=== PATIENT | male | born 1990 | race African-American/Black ===

== ENCOUNTER 2018-07-24 05:34 | Emergency (ER) | payer SELFPAY ==
[~2018-07-24] VITALS: Ht 180.3 cm; Wt 124.7 kg
[2018-07-24 05:48] VITALS: BP 127/87
--- NOTE | 2018-07-24 05:50 | NUR ---
PT came to emergency room after punching his left arm through window x1 hr ago. Pt states pain 2/10. Pt put on the monitor, NAD noted. Respirations even and unlabored. No bleeding. Laceration to L forearm. Pt [id number]. Pending eval from .
[2018-07-24] MEDS ORDERED: LIDOCAINE HCL/PF 1% 30 ML SDV ONE (06:21)
[2018-07-24] MEDS ORDERED: TDAP [DIPH/PERTUSSIS/TET] 0.5 ML VIAL IM ONE ×2 (06:30→06:43)
[2018-07-24] MEDS ORDERED: LIDOCAINE 1%-EPI 1:100,000 20 ML VIAL TP ONE (06:30)
== END 2018-07-24 07:03 | disposition home or self-care (01) ==
LOC: ER 05:39
DX: S51.812A Laceration without foreign body of left forearm, initial encounter (principal); Z98.890 Other specified postprocedural states; W26.8XXA Contact with other sharp object(s), not elsewhere classified, initial encounter; Y93.89 Activity, other specified; Y92.89 Other specified places as the place of occurrence of the external cause; Y99.8 Other external cause status
CPT/HCPCS: 90715; A6402; J3490

== ENCOUNTER 2018-07-27 10:12 | Emergency (ER) | payer SELFPAY ==
[~2018-07-27] VITALS: Ht 180.3 cm; Wt 126.6 kg
[2018-07-27 10:26] VITALS: BP 142/102
--- NOTE | 2018-07-27 11:29 | NUR ---
for discharge- ACI given verbalizes understanding Home ambulatory stable
== END 2018-07-27 11:29 | disposition home or self-care (01) ==
LOC: ER 10:16
DX: S41.112D Laceration without foreign body of left upper arm, subsequent encounter (principal); Z96.622 Presence of left artificial elbow joint; X58.XXXD Exposure to other specified factors, subsequent encounter
CPT/HCPCS: 99281; A4606; Z7610; Z7502

== ENCOUNTER 2018-08-08 11:36 | Emergency (ER) | payer SELFPAY ==
[~2018-08-08] VITALS: Ht 182.9 cm; Wt 127.0 kg
[2018-08-08 11:36] VITALS: BP 174/79
== END 2018-08-08 12:33 | disposition home or self-care (01) ==
LOC: ER 11:37
DX: S51.812D Laceration without foreign body of left forearm, subsequent encounter (principal); Z98.890 Other specified postprocedural states; X58.XXXD Exposure to other specified factors, subsequent encounter